=== PATIENT | female | born 1995 | race Two or more races ===

== ENCOUNTER 2024-09-18 08:51 | Outpatient (CLI) | payer OTHER ==
[2024-09-18 09:56] LABS: BASO % 0.4 % (0.1-1.2); EOS # 0.12 (0.04-0.54); EOS % 1.3 % (0.7-7.0); LYMPH # 1.94 (1.18-3.74); LYMPH % 21.5 % (19.3-53.1); MEAN PLATELET VOLUME 10.10 fl (9.4-12.4); MONO # 0.66 (0.24-0.82); MONO % 7.3 % (4.7-12.5); NEUT # 6.23 (1.56-6.13); NEUT % 69.1 % (34.0-71.1); RED CELL DISTRIBUTION WIDTH 12.2 % (11.6-14.4)
[2024-09-18 10:02] LABS: URINE APPEARANCE Cloudy; URINE BILIRRUBIN Negative (NEGATIVE); URINE BLOOD Negative; URINE COLOR Dark Yellow; URINE GLUCOSE Negative (NEGATIVE); URINE KETONE Trace (NEGATIVE); URINE LEUKOCYTE Trace; URINE NITRATE Negative; URINE PROTEIN 30 (NEGATIVE); URINE UROBILINOGEN 1.0 E.U./dl
[2024-09-18 10:05] LABS: URINE BACTERIA 1815.5 uL (0.0-1933); URINE EPITHELIAL CELLS 78.4 uL (0.0-38.8); URINE RBC 16.8 uL (0.0-20.8); URINE WBC 30.7 uL (0.0-23.2)
[2024-09-18 10:11] LABS: URINE CAST 0.58 uL (0.0-1.40)
[2024-09-18 10:18] LABS: URINE CRYSTALS FEW /HPF; URINE MUCUS HEAVY
[2024-09-18 10:38] LABS: GLUCOSE FASTING 83.0 mg/dL (65-100); T4 FREE 1.16 NG/ML (0.76-1.46); TSH 1.17 uIU/mL (0.358-3.74)
[2024-09-18 11:29] LABS: RH POSITIVE
[2024-09-19 07:11] LABS: hav igm Negative (Negative); hep b c Negative (Negative); hep b s ag Negative (Negative)
[2024-09-19 09:08] LABS: VARICELLA ZOSTER VIRUS IGG Non Reactive (Non Reactive)
[2024-09-19 13:08] LABS: RUBELLA IGG < 0.90 index (Immune >0.99)
[2024-09-21 11:07] LABS: RUBELLA IGM <20.0 AU/mL (0.0-19.9)
[2024-09-22 17:12] LABS: VARICELLA ZOSTER VIRUS IGM 1.83 index (0.00-0.90)
== END 2024-09-18 09:11 | disposition home or self-care (01) ==
LOC: LAB 08:51
PROVIDERS: ATTEND Obstetrics & Gynecology
DX: K76.89 Other specified diseases of liver (principal); R94.6 Abnormal results of thyroid function studies; Z34.00 Encounter for supervision of normal first pregnancy, unspecified trimester; N39.0 Urinary tract infection, site not specified; Z34.01 Encounter for supervision of normal first pregnancy, first trimester; B19.9 Unspecified viral hepatitis without hepatic coma; E08.9 Diabetes mellitus due to underlying condition without complications

== ENCOUNTER → 2024-10-07 13:53 | Outpatient (CLI) | payer OTHER | END | disposition home or self-care (01) | LOC: PRENATAL 13:53 | PROVIDERS: ATTEND Obstetrics & Gynecology Maternal & Fetal Medicine | DX: O36.80X0 Pregnancy with inconclusive fetal viability, not applicable or unspecified (principal); Z36.82 Encounter for antenatal screening for nuchal translucency; Z14.8 Genetic carrier of other disease; Z3A.12 12 weeks gestation of pregnancy ==

== ENCOUNTER → 2024-11-28 08:38 | Outpatient (CLI) | payer OTHER | END | disposition home or self-care (01) | LOC: PRENATAL 08:38 | PROVIDERS: ATTEND Obstetrics & Gynecology Maternal & Fetal Medicine | DX: O44.00 Complete placenta previa NOS or without hemorrhage, unspecified trimester (principal); Z3A.20 20 weeks gestation of pregnancy ==

== ENCOUNTER 2025-01-09 23:26 | Outpatient (CLI) | payer OTHER ==
[2025-01-09 23:00] VITALS: BP 108/67
[2025-01-10] MEDS ORDERED: CHILDREN'S ASPI81 MG PO (00:06)
[2025-01-10] MEDS ORDERED: PRENATAL CAPLE1 EAC1 PO (00:07)
[2025-01-10] MEDS ORDERED: RINGERS SOLUTION,LACTATED 1,000 ML IV SCH (00:15)
[2025-01-10 00:41] LABS: BASO % 0.4 % (0.1-1.2); EOS # 0.27 (0.04-0.54); EOS % 2.0 % (0.7-7.0); LYMPH # 3.06 (1.18-3.74); LYMPH % 22.5 % (19.3-53.1); MEAN PLATELET VOLUME 10.40 fl (9.4-12.4); MONO # 1.23 (0.24-0.82); MONO % 9.1 % (4.7-12.5); NEUT # 8.78 (1.56-6.13); NEUT % 64.6 % (34.0-71.1); RED CELL DISTRIBUTION WIDTH 12.9 % (11.6-14.4)
[2025-01-10 00:42] LABS: URINE APPEARANCE Clear; URINE BILIRRUBIN Negative (NEGATIVE); URINE BLOOD Negative; URINE COLOR Yellow; URINE GLUCOSE Negative (NEGATIVE); URINE KETONE Negative (NEGATIVE); URINE LEUKOCYTE Negative; URINE NITRATE Negative; URINE PROTEIN Negative (NEGATIVE); URINE UROBILINOGEN 0.2 E.U./dl
[2025-01-10 00:45] LABS: URINE BACTERIA 274.7 uL (0.0-1933); URINE EPITHELIAL CELLS 13.2 uL (0.0-38.8); URINE WBC 12.4 uL (0.0-23.2)
[2025-01-10 00:46] LABS: URINE CAST 0.00 uL (0.0-1.40); URINE RBC 1.9 uL (0.0-20.8)
[2025-01-10 04:20] VITALS: BP 101/63; O2SAT 100
[2025-01-10 07:18] VITALS: BP 106/69
[2025-01-10 10:55] VITALS: BP 98/59
[2025-01-10 13:32] VITALS: BP 96/62
== END 2025-01-10 15:05 | disposition home or self-care (01) ==
LOC: OBS/DEL 23:26
PROVIDERS: ATTEND Obstetrics & Gynecology
DX: O26.892 Other specified pregnancy related conditions, second trimester (principal); R10.20 Pelvic and perineal pain unspecified side; Z3A.26 26 weeks gestation of pregnancy

== ENCOUNTER 2025-02-18 06:19 | Outpatient (CLI) | payer OTHER ==
[~2025-02-18 06:19] MED LIST: CHILDREN'S ASPI81 MG PO; PRENATAL CAPLE1 EAC1 PO
== END 2025-02-18 06:20 | disposition home or self-care (01) ==
LOC: PRENATAL 06:19
PROVIDERS: ATTEND Obstetrics & Gynecology Maternal & Fetal Medicine
DX: O26.843 Uterine size-date discrepancy, third trimester (principal); O36.8130 Decreased fetal movements, third trimester, not applicable or unspecified; O36.63X0 Maternal care for excessive fetal growth, third trimester, not applicable or unspecified; Z3A.32 32 weeks gestation of pregnancy